=== PATIENT | female | born 1935 | race Caucasian/White ===

== ENCOUNTER 2021-12-08 19:55 | Emergency (ER) | payer OTHER ==
[~2021-12-08] VITALS: Ht 157.5 cm; Wt 63.5 kg
[2021-12-08] MEDS ORDERED: AMLO2.5T4 PO (21:22)
[2021-12-08 21:30] LABS: HEMATOCRIT 29.2 % (31.2-41.9); MEAN CORPUSCULAR HEMOGLOBIN 30.2 uug (24.7-32.8); MEAN CORPUSCULAR VOLUME 87.7 fL (75.5-95.3); PLATELET COUNT (AUTO) 311 K/uL (179-408)
[2021-12-08 21:31] LABS: CARBON DIOXIDE 27 mmol/L (21-32); CHLORIDE 104 mmol/L (98-107); CREATININE 0.6 mg/dL (0.6-1.3); GLUCOSE 107 mg/dL (74-106); POTASSIUM 3.5 mmol/L (3.5-5.1); UREA NITROGEN, BLOOD 13 mg/dL (7-18)
[2021-12-08] MEDS ORDERED: ACETAMINOPHEN ES 500 MG TABLET ONE (22:26)
[2021-12-08] MEDS ORDERED: ACETAMINOPHEN ES 500 MG TABLET PO ONE (22:30)
--- NOTE | 2021-12-08 22:38 | NUR ---
Patient discharged to home in stable condition. Written and verbal after care instructions given. Patient verbalizes understanding of instructions. Stressed follow up or return to ER for worsening s/s.
[2021-12-08 22:42] VITALS: BP 150/65
== END 2021-12-08 22:43 | disposition home or self-care (01) ==
LOC: ER 19:58
DX: R00.2 Palpitations (principal); R94.31 Abnormal electrocardiogram [ECG] [EKG]; G62.9 Polyneuropathy, unspecified; Z79.899 Other long term (current) drug therapy
CPT/HCPCS: 36415; 84443; 84484; 85025; 93005; A4663; A9150